=== PATIENT | female | born 1990 | race Caucasian/White ===

== ENCOUNTER 2017-09-30 16:07 | Emergency (ER) | payer OTHER ==
[2017-09-30] VITALS (9 sets, daily range): BP systolic 130–160; BP diastolic 79–103; PULSE 89–125
[~2017-09-30 16:07] MED LIST: PREN0.01 PO
--- NOTE | 2017-09-30 17:47 | PD ---
HPI Chief Complaint Headache Travel History International Travel<30 Days: No Contact w/Intl Traveler<30Days: No Known Affected Area: No History of Present Illness HPI 27-year-old , IUP at 32.4 care, complicated by history of preeclampsia with previous , previous delivery for preeclampsia, elevated cholesterol, migraine headaches The patient presents with a sensation of not feeling well around noon today. She reports that she started to have a headache at that time but she has not yet taken Tylenol. She reports that over the past 3 days she's had an intermittent headache that resolves with rest and Tylenol which she has attributed to stress. She also reports that her feet are swollen today to the point she couldn't get her samples on in her feet had a tingling sensation. She reports that she had some heartburn on Thursday and Thursday but denies any now. She denies any visual changes. She reports good movement. She denies any leaking of fluid, vaginal bleeding, or painful contractions. Weeks Gestation: 32 Para: 1 : 2 History Past Medical History Narrative Medical Migraine headache, elevated cholesterol, history of preeclampsia Obstetric History Obstetric History , at 36 weeks with induction initiated in the 35th week Family History Narrative Family History DM, CAD, ID, HTN Social History Alcohol Use: No Tobacco Use: No Substance Abuse: No Allergies-Medications (Allergen,Severity, Reaction): Coded Allergies: No Known Allergies (Verified Allergy, Unknown, 09/04/17) Home Meds Active Scripts Multivit/Min/Fol Ac/Iron/Pren ( Vit ( Plus)) Tab, 1 TAB PO DAILY, #30 8 Refills Prov:Jac De Paz MD 03/02/09 Review of Systems Except as stated in HPI: all other systems reviewed are Neg HENT: Headaches Physical Exam Narrative GENERAL: Well-nourished, well-developed patient. SKIN: Warm and dry. HEAD: Normocephalic and atraumatic. EYES: No scleral icterus. No injection or drainage. ENT: No nasal drainage noted. Mucous membranes pink. Airway patent. NECK: Supple, trachea midline. No JVD. CARDIOVASCULAR: Regular rate and rhythm without murmurs, gallops, or rubs. RESPIRATORY: Breath sounds equal bilaterally. No accessory muscle use. BREASTS: Bilateral exam showed no masses , no retractions, no nipple discharge. ABDOMEN/GI: Abdomen soft, non-tender, bowel sounds present, no rebound, no guarding Gravid GENITOURINARY: Deferred FHT's: heart tones have a baseline of 130s with moderate long-term variability, good accelerations, no decelerations noted. She has a reactive NST and category 1 heart rate tracing EXTREMITIES: No cyanosis or edema. BACK: Nontender without obvious deformity. No CVA tenderness. NEUROLOGICAL: Awake and alert. Motor and sensory grossly within normal limits. Five out of 5 muscle strength in all muscle groups. Normal speech. DTRs 2+, no clonus. Psychiatric: Grossly normal memory and affect Muscle skeletal: Grossly normal range of motion, gait, muscle strength Data Data Orders Orders Vital Signs (Adult) .ON ADMISSION (09/30/17 17:36) ^ Labor Status (09/30/17 17:36) Urinalysis - C+S If Indicated (09/30/17 17:36) ^ Non Stress Test (09/30/17 17:36) ^ Hydration (09/30/17 17:36) Cbc No Diff, Includes Plts (09/30/17 17:36) Comprehensive Metabolic Panel (09/30/17 17:36) Uric Acid (09/30/17 17:36) Protein Creat Ratio, Random Ur (09/30/17 17:36) MDM Plan Assessment/plan: Dr. Abarca arrived and assumed care for the patient. In the meantime, I initiated a preeclampsia workup with CBC, CMP, uric acid, protein creatinine ratio, and urinalysis. Discussed workup with Dr. Abarca who as noted has assumed care for the patient. May Spencer MD Sep 30, 2017 17:47
[2017-09-30 18:33] LABS: BACTERIA, URINE MANY /hpf; BLOOD, URINE NEG (NEG); CALCIUM OXALATE CRYSTALS,URINE FEW /hpf; COMMENT (UR) CULTURE INDICATED; CULTURE IF INDICATED CULTURE INDICATED; GLUCOSE,URINE NEG (NEG); KETONE, URINE 10 mg/dL (NEG); MUCUS URINE FEW /lpf (OCC); NITRITE,URINE NEG (NEG); SQUAMOUS EPITHELIAL CELL URINE 35 /hpf (0-5); TRANSITIONAL EPI CELLS, URINE 2 /hpf; URINE COLOR YELLOW (YELLW/STRAW)
--- NOTE | 2017-09-30 18:43 | MB ---
cc: MICKEY LUIS M.D. DATE OF CONSULTATION 09/30/2017 at 5:45 p.m. Labor and delivery consultation. REASON FOR EVALUATION Possible preeclampsia. HISTORY OF PRESENT ILLNESS A 27-year-old , white female para 0-1-0-1 with a LMP of 02/14/2017, EDC of 11/22/2017 by dates, 11/28/17 by ultrasound. Has a history of preeclampsia with first delivery, required delivery at 36 weeks. She in the middle for nursing board preparation and felt a little lightheaded around noontime. Had a headache at that time. Took Tylenol, it resolved. She had a little more concern about her blood pressure and edema and was advised to come in for evaluation. Her headache is now resolved. She is no longer lightheaded. Her initial blood pressure was elevated at 160/100 range but rapidly has dropped to the 130/80 range. PHYSICAL EXAMINATION HEENT: Her HEENT exam is normal. ABDOMEN: Is gravid, nontender. EXTREMITIES: Show only trace edema. Reflexes 2+ equal. monitoring is normal. ASSESSMENT 1. at 32 weeks. 2. History of hypertension. PLAN We will check labs, monitor. If stable and normal discharge home with 24-hour urine. She will stop working. 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 Return to the office as scheduled and return here as soon as possible for any signs of hypertension, preeclampsia. MD MYKEL Solis/KK /5:46 PM /6:21 PM
[2017-09-30 18:58] LABS: HEMATOCRIT 32.1 % (35.0-46.0); MEAN CELL VOLUME 92.8 FL (80.0-100.0); MEAN CORPUSCULAR HEMOGLOBIN 32.1 PG (27.0-34.0); MEAN CORPUSCULAR HGB CONC 34.6 % (32.0-36.0); PLATELET COUNT 235 TH/MM3 (150-450); RED BLOOD COUNT 3.46 MIL/MM3 (4.00-5.30); RED CELL DISTRIBUTION WIDTH 13.4 % (11.6-17.2); REVIEW FLAG FINAL; WHITE BLOOD COUNT 12.5 TH/MM3 (4.0-11.0)
[2017-09-30 19:21] LABS: ANION GAP 10 MEQ/L (5-15); AST (GOT) 14 U/L (15-37); BICARBONATE 19.9 MEQ/L (21.0-32.0); BLOOD UREA NITROGEN 8 MG/DL (7-18); CHLORIDE 107 MEQ/L (98-107); GLOMERULAR FILTRATION RATE 136 ML/MIN (>89); POTASSIUM 3.5 MEQ/L (3.5-5.1); SODIUM (NA) 137 MEQ/L (136-145); URIC ACID 3.8 MG/DL (2.6-6.0)
[2017-09-30 19:22] LABS: ALT (GPT) 13 U/L (10-53)
[2017-09-30 19:24] LABS: ALKALINE PHOSPHATASE 140 U/L (45-117); TOTAL BILIRUBIN ADULT 0.3 MG/DL (0.2-1.0)
--- NOTE | 2017-09-30 19:44 | PD ---
MDM Diagnosis Diagnosis: Primary Impression: 32 weeks gestation of Additional Impression: PIH ( induced hypertension), antepartum Disposition: 01 DISCHARGE HOME Condition: Good Patient Instructions: General Instructions Additional Instructions: RETURN TO ER FOR REGULAR CONTRACTIONS, BLEEDING, LEAKING OF FLUIDS, DECREASED MOVEMENT, HEADACHE, DIZZINESS, BLURRED VISION. COMPLETE 24 HOUR URINE ON 10/01/17 AT 7:45PM, RETURN URINE TO [facility]. KEEP URINE ON ICE UNTIL RETURNED TO LAB. FOLLOW UP WITH DR. LUIS NEEDED Departure Forms: Tests/Procedures May Spencer MD Sep 30, 2017 19:44
== END 2017-09-30 20:27 | disposition home or self-care (01) ==
LOC: HOBED 16:07
DX: O13.3 Gestational [pregnancy-induced] hypertension without significant proteinuria, third trimester (principal); B96.89 Other specified bacterial agents as the cause of diseases classified elsewhere; E78.00 Pure hypercholesterolemia, unspecified; Z3A.32 32 weeks gestation of pregnancy
CPT/HCPCS: 59025; 80053; 81001; 82570; 84156; 84550; 85027; 87086

== ENCOUNTER → 2017-10-01 | Outpatient (CLI) | payer OTHER ==
[~2017-10-01] MED LIST changes: +LABE100T2 PO
== END ==
LOC: HLAB 20:15
PROVIDERS: ATTEND Obstetrics & Gynecology
DX: Z00.00 Encounter for general adult medical examination without abnormal findings (principal)
CPT/HCPCS: 82575; 84157

== ENCOUNTER 2017-10-03 19:40 | Emergency (ER) | payer OTHER ==
[~2017-10-03 19:40] MED LIST changes: -LABE100T2 PO
[2017-10-03] MEDS ORDERED: ONDANSETRON HCL 4 MG/2 ML VIAL IV PUSH ONE (20:30)
--- NOTE | 2017-10-03 20:43 | PD ---
HPI Chief Complaint 33 weeks IUP; Elevated Blood pressure at home; Intermittent abdominal pain Travel History International Travel<30 Days: No Contact w/Intl Traveler<30Days: No Known Affected Area: No History of Present Illness HPI Pt is a 27 yo at [address] Abarca Pt reports nausea but no vomiting today. She reports intermittent abdominal pain, lasting about 30 seconds and lasting about 20 minutes with walking. Denies headache or vision changes. Active movements. No vaginal bleeding. No vaginal leaking. Allergies-Medications (Allergen,Severity, Reaction): Coded Allergies: No Known Allergies (Verified Allergy, Unknown, 09/04/17) Home Meds Active Scripts Multivit/Min/Fol Ac/Iron/Pren ( Vit ( Plus)) Tab, 1 TAB PO DAILY, #30 8 Refills Prov:Jac De Paz MD 03/02/09 Physical Exam Narrative GENERAL: Well-nourished, well-developed patient. SKIN: Warm and dry. HEAD: Normocephalic and atraumatic. EYES: No scleral icterus. No injection or drainage. ENT: No nasal drainage noted. Mucous membranes pink. Airway patent. NECK: Supple, trachea midline. No JVD. CARDIOVASCULAR: Regular rate and rhythm without murmurs, gallops, or rubs. RESPIRATORY: Breath sounds equal bilaterally. No accessory muscle use. BREASTS: Bilateral exam showed no masses , no retractions, no nipple discharge. ABDOMEN/GI: Abdomen soft, non-tender, bowel sounds present, no rebound, no guarding Gravid to [-] weeks size Fundal Height: [-] GENITOURINARY: External Genitalia: intact and normal in appearance BUS glands: [-] Cervix: [-] Dilatation: [-] Effacement: [-] Station: [-] Presentation: [-] Membranes: [intact or ruptured] Uterine Contractions: [-] FHT's: Category: [-] Baseline: [-] Reactive: [-] Variability: [-] Decels: [-] EXTREMITIES: No cyanosis or edema. BACK: Nontender without obvious deformity. No CVA tenderness. NEUROLOGICAL: Awake and alert. Motor and sensory grossly within normal limits. Five out of 5 muscle strength in all muscle groups. Normal speech. Data Data Vital Signs Reviewed: Yes Orders Orders Vital Signs (Adult) .ON ADMISSION (10/03/17 20:29) Urinalysis - C+S If Indicated (10/03/17 20:29) ^ Non Stress Test (10/03/17 20:29) ^ Hydration (10/03/17 20:29) Cbc No Diff, Includes Plts (10/03/17 20:29) Comprehensive Metabolic Panel (10/03/17 20:29) Uric Acid (10/03/17 20:29) Ondansetron Inj (Zofran Inj) (10/03/17 20:30) MDM Plan 27 yo at 33 weeks. Presents with elevated BP at home. BP here 140s/90s No headaches or vision changes. Urine protein trace. 1+ DTR at patella , no ankle clonus. D/w dr abarca. Start Labetalol 100mg po BID. PIH precautions emphasized. Keep scheduled appointment with Dr Abarca for next week. Diagnosis Diagnosis: Primary Impression: 33 weeks gestation of Additional Impression: PIH ( induced hypertension), antepartum Disposition: DISCHARGE HOME Condition: Stable Scripts Labetalol (Labetalol) 100 Mg Tab 100 MG PO BID for Blood Pressure Management, #60 TAB 0 Refills Prov: Damien Motta MD 10/03/17 Damien Motta MD Oct 03, 2017 20:43
[2017-10-03 21:00] LABS: HEMATOCRIT 31.7 % (35.0-46.0); HEMOGLOBIN 10.7 GM/DL (11.6-15.3); MEAN CELL VOLUME 91.7 FL (80.0-100.0); MEAN CORPUSCULAR HEMOGLOBIN 31.1 PG (27.0-34.0); MEAN CORPUSCULAR HGB CONC 33.9 % (32.0-36.0); MEAN PLATELET VOLUME 9.2 FL (7.0-11.0); PLATELET COUNT 237 TH/MM3 (150-450); RED BLOOD COUNT 3.46 MIL/MM3 (4.00-5.30); RED CELL DISTRIBUTION WIDTH 13.3 % (11.6-17.2); WHITE BLOOD COUNT 12.7 TH/MM3 (4.0-11.0)
[2017-10-03 21:11] LABS: AMORPHOUS SEDIMENT, URINE OCC; BACTERIA, URINE MOD /hpf; BILIRUBIN, URINE NEG (NEG); BLOOD, URINE NEG (NEG); CALCIUM OXALATE CRYSTALS,URINE OCC /hpf; GLUCOSE,URINE NEG (NEG); KETONE, URINE NEG (NEG); MUCUS URINE FEW /lpf (OCC); NITRITE,URINE NEG (NEG); SQUAMOUS EPITHELIAL CELL URINE 30 /hpf (0-5); TRANSITIONAL EPI CELLS, URINE <1 /hpf; URINE COLOR YELLOW (YELLW/STRAW); URINE LEUKOCYTE ESTERASE LARGE (NEG)
[2017-10-03 21:23] VITALS: BP 145/95; PULSE 100; RESP 18
[2017-10-03 21:23] LABS: ALBUMIN 2.6 GM/DL (3.4-5.0); AST (GOT) 15 U/L (15-37); BICARBONATE 22.2 MEQ/L (21.0-32.0); BLOOD UREA NITROGEN 6 MG/DL (7-18); CALCIUM 9.6 MG/DL (8.5-10.1); CHLORIDE 105 MEQ/L (98-107); CREATININE 0.54 MG/DL (0.50-1.00); GLOMERULAR FILTRATION RATE 136 ML/MIN (>89); GLUCOSE,RANDOM 76 MG/DL (74-106); SODIUM (NA) 139 MEQ/L (136-145)
[2017-10-03 21:25] LABS: ALT (GPT) 14 U/L (10-53)
[2017-10-03 21:26] LABS: ALKALINE PHOSPHATASE 126 U/L (45-117); TOTAL BILIRUBIN ADULT 0.3 MG/DL (0.2-1.0); TOTAL PROTEIN 6.9 GM/DL (6.4-8.2)
[2017-10-03 22:21] VITALS: BP 138/98; PULSE 110; RESP 16
[2017-10-03] MEDS ORDERED: LABE100T2 PO (22:35)
== END 2017-10-03 22:39 | disposition home or self-care (01) ==
LOC: HOBED 19:40
DX: O13.3 Gestational [pregnancy-induced] hypertension without significant proteinuria, third trimester (principal); Z3A.33 33 weeks gestation of pregnancy
CPT/HCPCS: 59025; 80053; 81001; 84550; 85027; 87086

== ENCOUNTER → 2017-10-08 | Outpatient (CLI) | payer OTHER ==
[~2017-10-08] MED LIST changes: +LABE100T2 PO
== END ==
LOC: HPND 07:42
PROVIDERS: ATTEND Obstetrics & Gynecology
DX: O09.293 Supervision of pregnancy with other poor reproductive or obstetric history, third trimester (principal); O13.3 Gestational [pregnancy-induced] hypertension without significant proteinuria, third trimester
CPT/HCPCS: 76816; 76818; 76820

== ENCOUNTER 2017-11-09 10:33 | Inpatient (IN) | payer OTHER ==
[~2017-11-09] VITALS: Ht 157.5 cm; Wt 79.0 kg
[2017-11-09] VITALS (26 sets, daily range): BP systolic 147–174; BP diastolic 96–118; PULSE 102–126; RESP 18; TEMP 97.9
--- NOTE | 2017-11-09 11:21 | HHI.HP ---
HPI Chief Complaint Patient sent from [facility] with elevated blood pressures while on labetalol Date Seen: Nov 09, 2017 Time Seen: 11:14 Travel History International Travel<30 Days: No Contact w/Intl Traveler<30Days: No Known Affected Area: No History of Present Illness HPI Patient is 27-year-old white female now at [address] spence for care and presents referred up here from [facility] for elevated blood pressures. She was seen her today for ultrasound. Noted blood pressures 160/90 should had the no real hypertensive problems this until mid to late September when her blood pressures pressure started to creep up and Dr. spence put her on labetalol 100 twice a day . Today we are getting blood pressures in the 150-160/90-100 range and urine dips 3+ proteinuria, has 2 + edema. heart tones are reactive and there are no contractions Weeks Gestation: 37 Para: 1 : 2 History Obstetric History Obstetric History Patient of preeclampsia with her first baby, delivered vaginally, she had low platelets with that delivery and had a hemorrhage as well Family History Family History: Social History Alcohol Use: No Tobacco Use: No Substance Abuse: No Allergies-Medications (Allergen,Severity, Reaction): Coded Allergies: No Known Allergies (Verified Allergy, Unknown, 09/04/17) Home Meds Active Scripts Labetalol (Labetalol) 100 Mg Tab, 100 MG PO BID for Blood Pressure Management, # 60 TAB 0 Refills Prov:Damien Motta MD 10/03/17 Multivit/Min/Fol Ac/Iron/Pren ( Vit ( Plus)) 27 Mg Iron-1 Mg Tab , 1 TAB PO DAILY, #30 8 Refills Prov:Jac De Paz MD 03/02/09 Review of Systems General / Constitutional: No: Fever, Weight Gain, Chills, Other Eyes: No: Diploplia, Blurred Vision, Visual changes, Pain, Photophobia HENT: No: Headaches, Vertigo, Lightheadedness Cardiovascular: No: Irregular Rhythm, Chest Pain or Discomfort, Palpitations, Tachycardia, Syncope, Varicosities, Edema, Cyanosis Respiratory: No: Cough, Short of Breath, Other Gastrointestinal: No: Nausea, Vomiting, Diarrhea Genitourinary: No: Decreased Urinary Output, Oliguria Musculoskeletal: No: Limited ROM, Weakness, Cramping, Edema, Pain Skin: No Rash, No Itching, No Dryness, No Lumps, No Change in Pigmentation, No Change in Nails, No Alopecia, No Lesions Neurologic: No: Weakness, Dizziness, Syncope, Focal Abnormalities, Coordination Problem, Headache, Slurred Speech, Seizures Psychiatric: No: Depression, Suicidal Ideations, Homicidal Ideation Endocrine: No: Heat Intolerance, Cold Intolerance, Polydipsia, Polyuria, Other Physical Exam Narrative GENERAL: Well-nourished, well-developed patient. SKIN: Warm and dry. HEAD: Normocephalic and atraumatic. EYES: No scleral icterus. No injection or drainage. ENT: No nasal drainage noted. Mucous membranes pink. Airway patent. NECK: Supple, trachea midline. No JVD. CARDIOVASCULAR: Regular rate and rhythm without murmurs, gallops, or rubs. RESPIRATORY: Breath sounds equal bilaterally. No accessory muscle use. BREASTS: Bilateral exam showed no masses , no retractions, no nipple discharge. ABDOMEN/GI: Abdomen soft, non-tender, bowel sounds present, no rebound, no guarding Gravid to [-37] weeks size Fundal Height: [37-] GENITOURINARY: External Genitalia: intact and normal in appearance BUS glands: [-] Cervix: [post-] Dilatation: [-1] Effacement: [-thick] Station: [-3] Presentation: [vtx-] Membranes: [intact ] Uterine Contractions: [none-] FHT's: Category: [1-] Baseline: [133-] Reactive: [-R] Variability: [mod-] Decels: [-none] EXTREMITIES: No cyanosis ,.2+ edema noted. BACK: Nontender without obvious deformity. No CVA tenderness. NEUROLOGICAL: Awake and alert. Motor and sensory grossly within normal limits. Five out of 5 muscle strength in all muscle groups. Normal speech. Caprini VTE Risk Assessment Caprini VTE Risk Assessment: No/Low Risk (score <= 1) Caprini Risk Assessment Model Point Value = 1 Point Value = 2 Point Value = 3 Point Value = 5 Age 41-60 Minor surgery BMI > 25 kg/m2 Swollen legs Varicose veins or History of unexplained or recurrent spontaneous Oral contraceptives or hormone replacement Sepsis (< 1 month) Serious lung disease, including pneumonia (< 1 month) Abnormal pulmonary function Acute myocardial infarction Congestive heart failure (< 1 month) History of inflammatory bowel disease Medical patient at bed rest Age 61-74 Arthroscopic surgery Major open surgery (> 45 min) Laparoscopic surgery (> 45 min) Malignancy Confined to bed (> 72 hours) Immobilizing plaster cast Central venous access Age >= 75 History of VTE Family history of VTE Factor V Leiden Prothrombin [id number] Lupus anticoagulant Anticardiolipin antibodies Elevated serum homocysteine Heparin-induced thrombocytopenia Other congenital or acquired thrombophilia Stroke (< 1 month) Elective arthroplasty Hip, pelvis, or leg fracture Acute spinal cord injury (< 1 month) Prophylaxis Regimen Total Risk Factor Score Risk Level Prophylaxis Regimen 0-1 Low Early ambulation 2 Moderate Order ONE of the following: *Sequential Compression Device (SCD) *Heparin 5000 units SQ BID 3-4 Higher Order ONE of the following medications: *Heparin 5000 units SQ TID *Enoxaparin/Lovenox 40 mg SQ daily (WT < 150 kg, CrCl > 30 mL/min) *Enoxaparin/Lovenox 30 mg SQ daily (WT < 150 kg, CrCl > 10-29 mL/min) *Enoxaparin/Lovenox 30 mg SQ BID (WT < 150 kg, CrCl > 30 mL/min) AND/OR *Sequential Compression Device (SCD) 5 or more Highest Order ONE of the following medications: *Heparin 5000 units SQ TID (Preferred with Epidurals) *Enoxaparin/Lovenox 40 mg SQ daily (WT < 150 kg, CrCl > 30 mL/min) *Enoxaparin/Lovenox 30 mg SQ daily (WT < 150 kg, CrCl > 10-29 mL/min) *Enoxaparin/Lovenox 30 mg SQ BID (WT < 150 kg, CrCl > 30 mL/min) AND *Sequential Compression Device (SCD) Data Data Orders Orders Cbc No Diff, Includes Plts (11/09/17 11:00) Comprehensive Metabolic Panel (11/09/17 11:00) Uric Acid (11/09/17 11:00) Urinalysis - C+S If Indicated (11/09/17 11:00) Labs Urine dip on OB ED was greater than 300 of protein consistent with 3+ at least proteinuria Assessment/Plan Assessment and Plan 2 7-year-old white female at 37 weeks presents with -induced hypertension and developing preeclampsia, while on oral antihypertensives but only been on those for the last 1-2 weeks. Blood pressures 150-160/90-100, 3+ proteinuria, 2+ edema. Plans admission to hospital, check PIH labs, and we'll discuss plan of care with her OB provider which may well include induction of labor for this patient at this point Jose Goldstein II, MD Nov 09, 2017 11:21
[2017-11-09] MEDS ORDERED: ACETAMINOPHEN 325 MG TAB PO PRN (11:30)
[2017-11-09] MEDS ORDERED: CALCIUM GLUCONATE 10% 1 GM/10 ML VIAL IV PUSH PRN ×3 (11:30→18:15)
[2017-11-09] MEDS ORDERED: SODIUM CHLORIDE 0.9% FLUSH 10 ML FLUSH IV FLUSH PRN ×3 (11:30→18:15)
[2017-11-09 12:16] LABS: BACTERIA, URINE RARE /hpf; BILIRUBIN, URINE NEG (NEG); BLOOD, URINE NEG (NEG); GLUCOSE,URINE NEG (NEG); KETONE, URINE NEG (NEG); MUCUS URINE FEW /lpf (OCC); NITRITE,URINE NEG (NEG); SQUAMOUS EPITHELIAL CELL URINE 24 /hpf (0-5); URINE COLOR YELLOW (YELLW/STRAW); URINE LEUKOCYTE ESTERASE MOD (NEG)
[2017-11-09 12:32] LABS: ALKALINE PHOSPHATASE 166 U/L (45-117); ALT (GPT) 12 U/L (10-53); TOTAL BILIRUBIN ADULT 0.1 MG/DL (0.2-1.0); TOTAL PROTEIN 6.8 GM/DL (6.4-8.2)
[2017-11-09 12:34] LABS: ALBUMIN 2.2 GM/DL (3.4-5.0); AST (GOT) 23 U/L (15-37); BICARBONATE 19.9 MEQ/L (21.0-32.0); BLOOD UREA NITROGEN 11 MG/DL (7-18); CALCIUM 8.6 MG/DL (8.5-10.1); CHLORIDE 107 MEQ/L (98-107); GLOMERULAR FILTRATION RATE 121 ML/MIN (>89); GLUCOSE,RANDOM 84 MG/DL (74-106); HEMATOCRIT 33.2 % (35.0-46.0); HEMOGLOBIN 11.1 GM/DL (11.6-15.3); MEAN CELL VOLUME 91.3 FL (80.0-100.0); MEAN CORPUSCULAR HEMOGLOBIN 30.5 PG (27.0-34.0); MEAN CORPUSCULAR HGB CONC 33.4 % (32.0-36.0); MEAN PLATELET VOLUME 11.4 FL (7.0-11.0); PLATELET COUNT 233 TH/MM3 (150-450); RED BLOOD COUNT 3.63 MIL/MM3 (4.00-5.30); RED CELL DISTRIBUTION WIDTH 13.8 % (11.6-17.2); SODIUM (NA) 138 MEQ/L (136-145); WHITE BLOOD COUNT 11.6 TH/MM3 (4.0-11.0)
[2017-11-09] MEDS ORDERED: ONDANSETRON HCL 4 MG/2 ML VIAL IV PUSH PRN (13:00)
[2017-11-09] MEDS ORDERED: LACTATED RINGER'S 1000 ML INJ 1,000 ML IV SCH (13:00)
[2017-11-09] MEDS ORDERED: LACTATED RINGER'S 1000 ML INJ 1,000 ML IV PRN (13:06)
[2017-11-09] MEDS ORDERED: SODIUM CHLORID 0.9% 500 ML INJ 500 ML IV PRN (13:15)
[2017-11-09] MEDS ORDERED: SODIUM CHLORIDE 0.9% FLUSH 10 ML FLUSH IV FLUSH SCH ×2 (13:15→21:00)
[2017-11-09] MEDS ORDERED: OXYTOCIN 30 UNITS-500ML PREMIX 500 ML IV PRN (13:15)
[2017-11-09] MEDS ORDERED: CITRIC ACID-SODIUM CITRATE LIQ 30 ML UDC PO SCH (13:15)
[2017-11-09] MEDS ORDERED: NIFEdipine 10 MG CAP PO PRN ×3 (13:15→14:00)
[2017-11-09] MEDS ORDERED: MINERAL OIL 10 ML VIAL TOPICAL PRN (13:15)
[2017-11-09] MEDS ORDERED: LIDOCAINE HCL 1% 50 ML VIAL INFIL PRN (13:15)
[2017-11-09] MEDS ORDERED: OXYTOCIN 30 UNITS-500ML PREMIX 500 ML IV ONE (13:15)
[2017-11-09] MEDS ORDERED: LIDOCAINE HCL 1% 50 ML VIAL I-DERMAL PRN (13:15)
[2017-11-09] MEDS ORDERED: SODIUM CHLOR 0.9% 1000 ML INJ 1,000 ML IV PRN (13:26)
[2017-11-09] MEDS: LACTATED RINGER'S 1000 ML INJ 1,000 ML IV SCH ×3 (14:00→21:28)
[2017-11-09] MEDS ORDERED: SODIUM CHLORIDE IV ONE (14:32)
[2017-11-09] MEDS ORDERED: OXYTOCIN IV ONE (14:32)
[2017-11-09] MEDS: FAMOTIDINE 20 MG TAB PO SCH ×2 (14:39→21:48)
--- NOTE | 2017-11-09 18:12 | PD.LABORPN ---
Subjective Subjective doing well, but reflexes have progressed. she is positive for cocaine Objective Vital Signs Vital Signs Date Time Temp Pulse Resp B/P (MAP) Pulse Ox O2 Delivery O2 Flow Rate FiO2 11/09/17 17:15 18 11/09/17 17:03 115 156/101 (119) 11/09/17 17:03 119 11/09/17 16:31 116 152/102 (119) 11/09/17 16:15 18 11/09/17 16:00 97.9 11/09/17 16:00 124 147/103 (118) 11/09/17 15:45 18 11/09/17 15:40 117 160/96 (117) 11/09/17 15:30 18 11/09/17 15:20 120 158/105 (122) 11/09/17 15:15 18 11/09/17 15:00 120 156/97 (116) 11/09/17 14:44 18 11/09/17 14:40 126 158/103 (121) 11/09/17 14:30 18 11/09/17 14:20 115 151/102 (118) 11/09/17 14:15 18 11/09/17 14:00 123 157/103 (121) 11/09/17 13:49 18 11/09/17 13:45 119 156/96 (116) 11/09/17 13:42 18 11/09/17 13:30 110 159/106 (123) 11/09/17 13:30 18 11/09/17 13:21 107 170/118 (135) 11/09/17 13:00 18 11/09/17 12:58 102 174/113 (133) 11/09/17 12:00 18 11/09/17 11:15 119 167/113 (131) Objective Pelvic Exam: Cervix: [-] Dilatation: 2 Effacement: 70 Station: [-] Presentation: [-] Membranes: AROM Uterine Contractions: Q2 min FHT's: Category: 1 Baseline: [-] Reactive: [-] Variability: [-] Decels: [-] Weeks Gestation: 37 Pt started active labor?: Yes Active labor start date: Nov 09, 2017 Active labor start time: 18:00 Medical induction of labor?: Yes Medical induction start date: Nov 09, 2017 Medical induction start time: 18:00 Artificial rupture of membrane: Yes Artificial ROM date: Nov 09, 2017 Artifical ROM time: 18:00 Assessment/Plan Problem List: (1) 37 weeks gestation of ICD Codes: Z3A.37 - 37 weeks gestation of (2) Pre-eclampsia added to pre-existing hypertension ICD Codes: O11.9 - Pre-existing hypertension with pre-eclampsia, unspecified trimester Assessment and Plan doing well Frandy Barajas MD Nov 09, 2017 18:11
[2017-11-09] MEDS ORDERED: MAGNESIUM SULFATE 4 GM PREMIX 100 ML IV ONE (18:15)
[2017-11-09] MEDS: MAGNESIUM SULFATE 40 GM PREMIX 1,000 ML IV SCH (19:26)
[2017-11-09] MEDS ORDERED: fentaNYL 2MCG-BUPIV 0.125% INJ 100 ML ONE (19:27)
[2017-11-09] MEDS ORDERED: NO SYSTEM NARCOTICS PRN (20:15)
[2017-11-09] MEDS ORDERED: ePHEDrine/NS 25 MG/5 ML SYRINGE IV PUSH PRN (20:15)
[2017-11-09] MEDS ORDERED: DO NOT ADMINISTER ANTICOAGULANTS PRN (20:15)
[2017-11-09] MEDS: fentaNYL 2MCG-BUPIV 0.125% 100 ML EPIDURAL SCH (20:49)
[2017-11-09] MEDS: SODIUM CHLORIDE 0.9% FLUSH 10 ML FLUSH IV FLUSH SCH (20:49)
--- NOTE | 2017-11-09 22:14 | PD.LABORPN ---
Subjective Subjective patient on magnesium and doing well. Bp 131/86 and she has Headache since magnesium started. She is comfortable with epidural Objective Vital Signs Vital Signs Date Time Temp Pulse Resp B/P (MAP) Pulse Ox O2 Delivery O2 Flow Rate FiO2 11/09/17 17:15 18 11/09/17 17:03 115 156/101 (119) 11/09/17 17:03 119 11/09/17 16:31 116 152/102 (119) 11/09/17 16:15 18 11/09/17 16:00 97.9 11/09/17 16:00 124 147/103 (118) 11/09/17 15:45 18 11/09/17 15:40 117 160/96 (117) 11/09/17 15:30 18 11/09/17 15:20 120 158/105 (122) 11/09/17 15:15 18 11/09/17 15:00 120 156/97 (116) 11/09/17 14:44 18 11/09/17 14:40 126 158/103 (121) 11/09/17 14:30 18 11/09/17 14:20 115 151/102 (118) 11/09/17 14:15 18 Objective Pelvic Exam: Cervix: [-] Dilatation: 2 Effacement: 50 Station: [-] Presentation: [-] Membranes: ruptured Uterine Contractions: irregular q2-5 FHT's: Category: 1 Baseline: [-] Reactive: [-] Variability: [-] Decels: [-] Weeks Gestation: 37 Gest Age Assessed Date: Nov 09, 2017 Pt started active labor?: Yes Active labor start date: Nov 09, 2017 Active labor start time: 18:00 Medical induction of labor?: Yes Medical induction start date: Nov 09, 2017 Medical induction start time: 18:00 Artificial rupture of membrane: Yes Artificial ROM date: Nov 09, 2017 Artifical ROM time: 18:00 Assessment/Plan Problem List: (1) 37 weeks gestation of ICD Codes: Z3A.37 - 37 weeks gestation of (2) Pre-eclampsia added to pre-existing hypertension ICD Codes: O11.9 - Pre-existing hypertension with pre-eclampsia, unspecified trimester Assessment and Plan continue current care Frandy Barajas MD Nov 09, 2017 22:14
[2017-11-09] MEDS: ACETAMIN 325 MG/BUTALBITAL 50 MG/CAFFEINE 40 MG TAB PO PRN (22:48)
[2017-11-10] VITALS (42 sets, daily range): BP systolic 134–160; BP diastolic 79–106; PULSE 82–110; RESP 17–19; TEMP 98; O2SAT 95–100
[2017-11-10] MEDS: LACTATED RINGER'S 1000 ML INJ 1,000 ML IV SCH ×6 (00:17→23:08)
[2017-11-10] MEDS: ACETAMIN 325 MG/BUTALBITAL 50 MG/CAFFEINE 40 MG TAB PO PRN ×2 (03:22→04:09)
[2017-11-10] MEDS: fentaNYL 2MCG-BUPIV 0.125% 100 ML EPIDURAL SCH (04:17)
--- NOTE | 2017-11-10 04:50 | PD.LABORPN ---
Subjective Subjective doing well, She is not feeling well on magnesium and is jax well on pitocin 18 Objective Objective Pelvic Exam: Cervix: [-] Dilatation: 4 Effacement: 80 Station: -2 Presentation: vtx Membranes: ruptured forebag ruptured again Uterine Contractions: Q2-3 FHT's: Category: 1 Baseline: [-] Reactive: [-] Variability: [-] Decels: [-] Weeks Gestation: 37 Gest Age Assessed Date: Nov 09, 2017 Gest Age Assessed Time: 18:00 Pt started active labor?: Yes Active labor start date: Nov 09, 2017 Active labor start time: 18:00 Medical induction of labor?: Yes Medical induction start date: Nov 09, 2017 Medical induction start time: 18:00 Artificial rupture of membrane: Yes Artificial ROM date: Nov 09, 2017 Artifical ROM time: 18:00 Assessment/Plan Problem List: (1) 37 weeks gestation of ICD Codes: Z3A.37 - 37 weeks gestation of (2) Pre-eclampsia added to pre-existing hypertension ICD Codes: O11.9 - Pre-existing hypertension with pre-eclampsia, unspecified trimester Frandy Barajas MD Nov 10, 2017 04:50
[2017-11-10] MEDS: FAMOTIDINE 20 MG TAB PO SCH ×3 (05:05→21:00)
[2017-11-10] MEDS: LABETALOL HCL 100 MG TAB PO SCH ×3 (05:05→21:00)
[2017-11-10] MEDS: SODIUM CHLORIDE 0.9% FLUSH 10 ML FLUSH IV FLUSH SCH ×3 (09:00→21:00)
[2017-11-10] MEDS ORDERED: LACTATED RINGER'S 1000 ML INJ 1,000 ML IV ONE ×2 (09:18→12:00)
[2017-11-10] MEDS ORDERED: LIDOCAINE 2%/EPINEPHrine PF 1:200,000 20ML SDV ONE (09:23)
[2017-11-10] MEDS ORDERED: MORPHINE SULFATE PF 5 MG/10 ML VIAL ONE (09:39)
--- NOTE | 2017-11-10 10:21 | PD.OB.DELI ---
Procedure Note Section Procedure Pre Op Diagnosis: (1) Encounter for female sterilization procedure (2) Pre-eclampsia added to pre-existing hypertension (3) 37 weeks gestation of Post Op Diagnosis: Performed by Frandy Barajas Procedure: Primary Low Transverse Sec Indication for delivery: Other (arrest of dilatation at 6 cm) Informed consent obtained: For anesthesia, For procedure Confirmed correct: Patient, Procedure, Time-out taken Anesthesia: Epidural Monitoring during procedure: Blood pressure monitoring Urinary catheter: To dependent drainage Sterile preparation: Duraprep Position: Supine with wedge to left side Operative Features Delivery date: Nov 10, 2017 Delivery time: 09:56 Delivery of infant: Uneventful : Single One Minute : 8 Five Minute : 9 Weight: 7# 1 oz Status of infant: Viable Placenta delivered: Intact Estimated blood loss: 500 Procedure tolerated: Well Maternal Condition: Stable Condition: Stable Frandy Barajas MD Nov 10, 2017 10:21
[2017-11-10] MEDS ORDERED: KETOROLAC TROMETHAMINE 60 MG/2 ML (IM) VIAL IM PRN (10:30)
[2017-11-10] MEDS ORDERED: OXYTOCIN 30 UNITS-500ML PREMIX 500 ML IV ONE (10:30)
[2017-11-10] MEDS ORDERED: ceFAZolin 2 GM PREMIX 50 ML IV SCH (10:30)
[2017-11-10] MEDS ORDERED: SIMETHICONE 80 MG CHEWABLE TAB PO PRN (10:30)
[2017-11-10] MEDS ORDERED: SODIUM CHLORIDE 0.9% FLUSH 10 ML FLUSH IV FLUSH PRN (10:30)
[2017-11-10] MEDS ORDERED: CITRIC ACID-SODIUM CITRATE LIQ 30 ML UDC PO SCH (11:00)
[2017-11-10] MEDS ORDERED: ONDANSETRON HCL 4 MG/2 ML VIAL IV ONE (12:00)
[2017-11-10] MEDS ORDERED: PHENYLEPH/NS 1000 MCG/10 ML SYR IV ONE (12:00)
[2017-11-10] MEDS ORDERED: OXYTOCIN 10 UNIT/ML AMP IV ONE (12:00)
[2017-11-10] MEDS ORDERED: ceFAZolin INJ 1,000 MG VIAL IV ONE (12:00)
[2017-11-10] MEDS ORDERED: DEXAMETHASONE SOD PHOS 4 MG/ML VIAL IV ONE (12:00)
[2017-11-10] MEDS ORDERED: EPIDURAL-NO SYSTEMIC NARCOTICS PRN (13:30)
[2017-11-10] MEDS ORDERED: EPIDURAL-DIPHENHYDRAMINE HCL 50 MG CAP PO PRN (13:30)
[2017-11-10] MEDS ORDERED: EPIDURAL-DO NOT ADMINISTER ANTICOAGULANTS PRN (13:30)
[2017-11-10] MEDS ORDERED: EPIDURAL-DIPHENHYDRAMINE HCL 50 MG/ML VIAL IV PUSH PRN (13:30)
[2017-11-10] MEDS ORDERED: EPIDURAL-NALOXONE HCL 0.4 MG/ML AMP IV PUSH PRN (13:30)
[2017-11-10 14:33] LABS: HEMATOCRIT 32.8 % (35.0-46.0); HEMOGLOBIN 10.9 GM/DL (11.6-15.3); MEAN CELL VOLUME 90.4 FL (80.0-100.0); MEAN CORPUSCULAR HGB CONC 33.2 % (32.0-36.0); MEAN PLATELET VOLUME 10.6 FL (7.0-11.0); PLATELET COUNT 214 TH/MM3 (150-450); RED BLOOD COUNT 3.63 MIL/MM3 (4.00-5.30); RED CELL DISTRIBUTION WIDTH 13.9 % (11.6-17.2); WHITE BLOOD COUNT 17.5 TH/MM3 (4.0-11.0)
[2017-11-10 14:52] LABS: ALBUMIN 2.1 GM/DL (3.4-5.0); BICARBONATE 20.1 MEQ/L (21.0-32.0); CALCIUM 7.3 MG/DL (8.5-10.1); CALCIUM-PROTEIN CORRECTED 7.7 MG/DL (8.5-10.1); CREATININE 0.6 MG/DL (0.50-1.00); TOTAL BILIRUBIN ADULT 0.4 MG/DL (0.2-1.0); TOTAL PROTEIN 6.4 GM/DL (6.4-8.2)
[2017-11-10] MEDS: MAGNESIUM SULFATE 40 GM PREMIX 1,000 ML IV SCH (16:08)
[2017-11-10] MEDS ORDERED: OXYTOCIN 30 UNITS-500ML PREMIX 500 ML IV PRN (20:30)
--- NOTE | 2017-11-10 22:15 | MP ---
cc: MICKEY BARAJAS DATE OF SURGERY 11/10/17 PROCEDURE Primary low transverse section and bilateral tubal ligation. PREOPERATIVE DIAGNOSIS Preeclampsia arrestive dilatation at 6 cm POSTOPERATIVE DIAGNOSIS Primary low transverse caesarean section and bilateral tubal ligation. SURGEON Dr. Neida Barajas ESTIMATED BLOOD LOSS 500 mL ANESTHESIA Epidural COMPLICATIONS None FINDINGS Live infant, Apgars 8 and 9, 7 pounds 1 ounce PROCEDURE IN DETAIL After informed consent, the patient was taken to the operating room where she was placed under epidural anesthesia, placed in supine position left lateral tilt time. Abdomen, vagina, vagina prepped, draped normal sterile fashion. After adequate anesthesia was assured and a time-out was taken, a Pfannenstiel skin incision was carried sharply through the skin to the fascia. The fascia was nicked in midline. The incision was distended laterally using Farmer scissors. Rectus muscles dissected off the fascia with sharp and blunt dissection. Peritoneum was entered bluntly with the finger. The incision was then carried laterally using blunt traction. uterus was noted to be midline. Bladder flap was created by dissecting bladder off the lower uterine segment. A low-transverse uterine incision was then made, carried sharply in the uterine cavity. Clear fluid was noted. The incision was extended laterally using blunt traction. A hand was placed in the uterus. The infant's head was guided through the incision. Using fundal pressure, the infant's head readily delivered. Nose and mouth suctioned well. Cord was clamped and cut. Infant and was handed to pediatrics in attendance. Cord blood was collected. Placenta was delivered manually. Uterus exteriorized, wiped free from all remaining products of conception. Uterine incision was then closed with running locking stitch of chromic suture. Good hemostasis was achieved. Fallopian tubes were tied bilaterally tagging the left in a Sacha fashion without difficulty. Uterus was placed back in the abdomen and noted to be hemostatic. The pedicles of the tubal were noted to be hemostatic. The peritoneum was closed with chromic suture. The fascia was closed with Vicryl suture. Skin was closed with subcuticular stitches. Each layer was noted to be hemostatic prior to closure. The patient tolerated the procedure well. Lap and instrument counts were reported as correct. MD MAKENZIE Kelley/ /10:24 AM /10:02 PM
[2017-11-11] VITALS (20 sets, daily range): BP systolic 118–160; BP diastolic 68–100; PULSE 74–96; RESP 18–20; TEMP 97.6–98.8; O2SAT 95
[2017-11-11] MEDS: oxyCODONE/ACETAMINOPHEN 5 MG/325 MG TAB PO PRN ×4 (00:15→23:25)
[2017-11-11] MEDS: LACTATED RINGER'S 1000 ML INJ 1,000 ML IV SCH ×2 (01:21→05:48)
[2017-11-11 05:57] LABS: AUTOMATED NEUTROPHIL # 9.9 TH/MM3 (1.8-7.7); BASOPHIL % 0.2 % (0.0-2.0); EOSINOPHIL % 0.1 % (0.0-4.0); HEMATOCRIT 25.2 % (35.0-46.0); HEMOGLOBIN 8.6 GM/DL (11.6-15.3); LYMPH % 14.5 % (9.0-44.0); LYMPHOCYTE # 1.8 TH/MM3 (1.0-4.8); MEAN CELL VOLUME 90.1 FL (80.0-100.0); MEAN CORPUSCULAR HEMOGLOBIN 30.7 PG (27.0-34.0); MEAN CORPUSCULAR HGB CONC 34.1 % (32.0-36.0); MONO % 6.7 % (0.0-8.0); MONOCYTE # 0.8 TH/MM3 (0-0.9); NEUT % 78.5 % (16.0-70.0); PLATELET COUNT 181 TH/MM3 (150-450); RED BLOOD COUNT 2.79 MIL/MM3 (4.00-5.30); RED CELL DISTRIBUTION WIDTH 13.7 % (11.6-17.2); WHITE BLOOD COUNT 12.6 TH/MM3 (4.0-11.0)
[2017-11-11] MEDS: SODIUM CHLORIDE 0.9% FLUSH 10 ML FLUSH IV FLUSH SCH ×3 (09:00→21:05)
[2017-11-11] MEDS: FAMOTIDINE 20 MG TAB PO SCH ×2 (09:00→21:05)
[2017-11-11] MEDS: LABETALOL HCL 100 MG TAB PO SCH (10:45)
[2017-11-11] MEDS: IBUPROFEN 600 MG TAB PO PRN ×2 (11:03→18:36)
[2017-11-11] MEDS ORDERED: DIPHTH/TETANUS/ACEL PERTUSSIS (BOOSTER) 0.5 ML VIAL/PFS IM ONE (16:00)
[2017-11-11] MEDS ORDERED: NIFEdipine 10 MG CAP PO ONE (16:00)
[2017-11-11] MEDS ORDERED: diphenhydrAMINE HCL 25 MG CAP PO ONE (16:00)
[2017-11-11] MEDS ORDERED: MEASLES, MUMPS, RUBELLA VACCINE 0.5 ML VIAL SQ ONE (16:00)
[2017-11-11] MEDS ORDERED: POLYETHYLENE GLYCOL 17 GM PKG PO PRN (21:00)
[2017-11-11] MEDS: LABETALOL HCL 200 MG TAB PO SCH (21:05)
[2017-11-11] MEDS: DOCUSATE SODIUM 100 MG CAP PO SCH (21:05)
[2017-11-12] VITALS (10 sets, daily range): BP systolic 134–161; BP diastolic 82–110; PULSE 70–91; RESP 16–20; TEMP 97.8–98.8; O2SAT 96–99
[2017-11-12] MEDS: IBUPROFEN 600 MG TAB PO PRN ×4 (00:44→18:08)
[2017-11-12] MEDS: oxyCODONE/ACETAMINOPHEN 5 MG/325 MG TAB PO PRN ×4 (06:51→19:54)
[2017-11-12] MEDS: LABETALOL HCL 200 MG TAB PO SCH ×2 (09:05→21:03)
[2017-11-12] MEDS: FAMOTIDINE 20 MG TAB PO SCH (09:05)
[2017-11-12] MEDS: DOCUSATE SODIUM 100 MG CAP PO SCH ×2 (09:05→21:03)
[2017-11-13] MEDS: oxyCODONE/ACETAMINOPHEN 5 MG/325 MG TAB PO PRN ×3 (01:15→13:25)
[2017-11-13] MEDS: IBUPROFEN 600 MG TAB PO PRN ×2 (01:16→08:50)
[2017-11-13 03:15] VITALS: BP 145/91; PULSE 79; RESP 16
[2017-11-13 08:00] VITALS: BP 139/85; PULSE 83; RESP 16; TEMP 98.1; O2SAT 96
[2017-11-13] MEDS ORDERED: LABE200T2 PO (08:24)
[2017-11-13] MEDS ORDERED: OXYC1TAB63 PO (08:24)
--- NOTE | 2017-11-13 08:24 | HHI.DCPOC ---
Discharge Care Plan Report Symptoms to Your Doctor -Temperature above 100.5 degrees -Redness, of incision or excessive or foul smelling drainage -Unusual pain or calf pain -Increased vaginal bleeding -Painful or difficulty urinating -Feelings of extreme sadness or anxiety after 2 weeks Goals to Promote Your Health * To prevent worsening of your condition and complications * To maintain your health at the optimal level Directions to Meet Your Goals Take your medications as prescribed Follow your dietary instruction Follow activity as directed Ensure plenty of rest for recovery Drink fluids for hydration Keep your appointments as scheduled Take your immunizations and boosters as scheduled If your symptoms worsen call your PCP, if no PCP go to Urgent Care Center or Emergency Room Smoking is Dangerous to Your Health. Avoid second hand smoke Call the 24-hour crisis hotline for domestic abuse at Frandy Abarca MD Nov 13, 2017 08:24
[2017-11-13] MEDS: DOCUSATE SODIUM 100 MG CAP PO SCH (08:50)
[2017-11-13] MEDS: LABETALOL HCL 200 MG TAB PO SCH (08:50)
[2017-11-13] MEDS: FAMOTIDINE 20 MG TAB PO SCH (08:51)
[2017-11-13 12:00] VITALS: BP 159/97; PULSE 82; RESP 18; TEMP 99.2; O2SAT 98
--- NOTE | 2017-11-18 08:36 | MD ---
cc: MICKEY LUIS ADMISSION DATE: 11/09/2017 DISCHARGE DATE: 11/13/2017 ADMISSION DIAGNOSIS 1. at 37 weeks. 2. Worsening preeclampsia. DISCHARGE DIAGNOSIS 1. at 37 weeks. 2. Worsening preeclampsia. 3. Failure to progress 4. Multiparity 5. Delivered PROCEDURES 1. Induction of labor begun on 11/09/2017. 2. Primary with bilateral tubal interruption on 11/10/2017. HISTORY OF PRESENT ILLNESS This is a 27-year-old white female para 0-1-0-1 who had LMP of 01/28/2017, EDC of 11/22/2017 by dates and 11/20/2017 by early ultrasound. Her first notable for delivery at 36 weeks for preeclampsia. She was on aspirin prophylaxis this . She had developed increased blood pressure in the last few weeks on bedrest and Labetalol and biweekly testing. On the day of admission, her BPP was normal. Her blood pressure was elevated. She was sent to the labor room for evaluation, had worsening proteinuria, hyperreflexia and Dr. Gordillo admitted her and began her on induction of labor. By the next day, she failed to progress beyond 6 cm, underwent a primary and bilateral tubal interruption with delivery of a viable vigorous female. The baby is named Tabatha. She is breast feeding. , she received mag sulfate for 24 hours and Labetalol was increased to 200 mg p.o. b.i.d. for BP control. Her pre and postop labs were normal. She was discharged home in excellent condition on 11/13/2017. Of note, her initial urinalysis had a positive cocaine screen due to a possible lab error. Urinalysis was repeated and was negative and testing of meconium is pending. The patient was advised NPV, light activity, no driving. Return to see me in one week. She will take her vitamins and iron pills at home. She was given a prescription for Labetalol 200 mg p.o. b.i.d. 60, refill one, Percocet one to two p.o. q.4 h p.r.n. pain #60 5 mg strength. She is to take her vitamin with iron pills daily. She is to return to the hospital a.s.a.p. for signs of headache, swelling, atypical abdominal pain, and anything suggestive of recurrent preeclampsia. Also, the patient received RhoGAM on 11/11/2017. MD MYKEL Solis/CASSY /8:26 AM /8:25 AM
== END 2017-11-13 13:47 | disposition home or self-care (01) | DRG 766 ==
LOC: HOBED 10:33 → H2EA 11:26 → H1EA 11-11 11:00
PROVIDERS: ADMIT Obstetrics & Gynecology; ATTEND Obstetrics & Gynecology
PROC: 3E033VJ Introduction of Other Hormone into Peripheral Vein, Percutaneous Approach (ICD-10-PCS; 2017-11-09)
PROC: 10907ZC Drainage of Amniotic Fluid, Therapeutic from Products of Conception, Via Natural or Artificial Opening (ICD-10-PCS; 2017-11-09)
PROC: 3E0R3BZ Introduction of Anesthetic Agent into Spinal Canal, Percutaneous Approach (ICD-10-PCS; 2017-11-09)
PROC: 00HU33Z Insertion of Infusion Device into Spinal Canal, Percutaneous Approach (ICD-10-PCS; 2017-11-09)
PROC: 10D00Z1 Extraction of Products of Conception, Low, Open Approach (ICD-10-PCS; principal; 2017-11-10)
PROC: 0UB70ZZ Excision of Bilateral Fallopian Tubes, Open Approach (ICD-10-PCS; 2017-11-10)
DX: O14.93 Unspecified pre-eclampsia, third trimester (principal); O62.1 Secondary uterine inertia; Z30.2 Encounter for sterilization; Z37.0 Single live birth; Z3A.37 37 weeks gestation of pregnancy; Z97.8 Presence of other specified devices
CPT/HCPCS: 59025; 80053; 80307; 81001; 84550; 85025; 85027; 85461; 86850; 86900; 86901; 87086; 88302; 90384; 90715; G0481; J0690; J1100; J1885; J2274; J2370; J2405; J2590; J2790; J3475; J7120; Q0163